=== PATIENT | female | born 1980 | race Caucasian/White ===

== ENCOUNTER 2018-10-12 06:40 | Day surgery (SDC) | payer OTHER ==
[2018-10-12] MEDS ORDERED: SEVOFLURANE 15 MIN (07:00)
[2018-10-12] MEDS ORDERED: LIDOCAINE 2% (SDV) 5 ML INJ (07:36)
[2018-10-12] MEDS ORDERED: CEFAZOLIN 1 GM INJ (07:36)
[2018-10-12] MEDS ORDERED: PROPOFOL 20 ML (07:36)
[2018-10-12] MEDS ORDERED: MEPERIDINE 100 MG INJ (07:37)
[2018-10-12] MEDS ORDERED: ONDANSETRON 4 MG INJ (07:37)
[2018-10-12] MEDS ORDERED: METOCLOPRAMIDE 10 MG INJ (07:37)
[2018-10-12] MEDS: morphine SULFATE/PF (10 MG/10 ML) INJ (08:55)
[2018-10-12] MEDS: POLYMYXIN/BACITRACIN 1L IRRIG (08:56)
[2018-10-12] MEDS: EPINEPHrine 1 MG/ML 30 ML INJ IRR (08:56)
[2018-10-12] MEDS ORDERED: EPHEDrine SULFATE 50 MG/5 ML SYG IV (10:30)
[2018-10-12] MEDS ORDERED: HYDROmorphONE 1 MG/5 ML IV SYRINGE IV (10:30)
[2018-10-12] MEDS ORDERED: ONDANSETRON 4 MG INJ IV (10:30)
[2018-10-12] MEDS ORDERED: FENTAnyl 50 MCG/ML VIAL IV ×2 (10:30)
[2018-10-12] MEDS ORDERED: OXYCODONE/ACETAMINOPHEN (5/325) TAB PO ×2 (10:30)
[2018-10-12] MEDS ORDERED: MIDAZOLAM 1 MG/ML 2 ML INJ IV (10:30)
[2018-10-12] MEDS ORDERED: LABETALOL HCL 20MG INJ IV (10:30)
[2018-10-12] MEDS ORDERED: MEPERIDINE 25 MG INJ IV (10:30)
[2018-10-12] MEDS ORDERED: METOCLOPRAMIDE 10 MG INJ IV (10:30)
[2018-10-12] MEDS ORDERED: hydrALAzine 20 MG INJ IV (10:30)
[2018-10-12] MEDS ORDERED: DIPHENHYDRAMINE 50 MG INJ IV (10:30)
[2018-10-12] MEDS: HYDROmorphONE 1 MG/5 ML IV SYRINGE IV ×2 (10:57→11:17)
[2018-10-12] MEDS ORDERED: HYDROCODONE/APAP (5/325) TAB PO (11:00)
[2018-10-12] MEDS: FENTAnyl 50 MCG/ML VIAL IV (11:21)
[2018-10-12] MEDS: HYDROCODONE/APAP (5/325) TAB PO (12:14)
== END 2018-10-12 13:05 | disposition home or self-care (01) ==
LOC: SDS 06:40
DX: S83.242A Other tear of medial meniscus, current injury, left knee, initial encounter (principal); S83.282A Other tear of lateral meniscus, current injury, left knee, initial encounter; S83.512A Sprain of anterior cruciate ligament of left knee, initial encounter; X58.XXXA Exposure to other specified factors, initial encounter; Y93.89 Activity, other specified; Y92.89 Other specified places as the place of occurrence of the external cause; Y99.8 Other external cause status
CPT/HCPCS: 29880